=== PATIENT | male | born 1985 | race Two or more races ===

== ENCOUNTER 2024-10-08 12:08 | Emergency (ER) | payer MEDICAID, OTHER ==
[~2024-10-08] VITALS: Ht 190.5 cm; Wt 102.3 kg
[2024-10-08 14:22] LABS: Basophils # (auto) 0 10 ^3/uL (0-0.2); Basophils % (auto) 0.6 % (0.0-2.0); Eosinophils # (auto) 0 10 ^3/uL (0-0.8); Eosinophils % (auto) 0.3 % (0.0-7.0); Hematocrit 50.7 % (41.0-53.0); Lymphocytes # (auto) 2.8 10 ^3/uL (0.4-5.4); Lymphocytes % (auto) 41.2 % (10.0-50.0); Mean Corpuscular Hemoglobin 30.7 pg (28.0-32.0); Mean Corpuscular Hgb Conc. 33.5 g/dL (32.0-36.0); Mean Corpuscular Volume 91.5 fL (80.0-100.0); Monocytes # (auto) 0.4 10 ^3/uL (0-1.3); Monocytes % (auto) 5.6 % (0.0-12.0); Neutrophils # (auto) 3.6 10 ^3/uL (1.6-8.6); Neutrophils % (auto) 52.3 % (37.0-80.0); Nucleated Red Blood Cells % 0.1 %; Platelet Count (auto) 200 10^3/uL (140-450); Red Blood Cells 5.54 10^6/uL (4.5-5.90); Red Cell Distribution Width 14.4 % (11.8-14.3); White Blood Cell 6.8 10^3/uL (4.4-10.8)
--- NOTE | 2024-10-08 14:30 | ED.PDOC ---
History of Present Illness HPI Comments 38 y/o M, with a Hx of Trilogy of Fallot and LA, presents with resolved c/o shortness of breath, dizziness, generalized tremors, nausea, and vomiting, today. Patient reports unprovoked and sudden onset of symptoms, intermittently, this morning that began around 0400. He states on symptoms feeling similar to when he had a LA in June 29 2024 and, recently, moving from [facility]. He states also on having established care with his local material requirements worker and is awaiting results from a Holter monitor he had for the past 2 weeks. He reports no additional relevant or pertinent Hx, such as travel, injuries, stress, or strenuous activities. He denies having any chest pain, palpitations, lig htheadedness, fever, chills, or other associated symptoms or modifiers at this time. Chief Complaint: Dizziness Time Seen by MD: 13:45 Reviewed Notes: Nurses Notes, Medications, Allergies Allergies: Coded Allergies: NO KNOWN ALLERGIES (Unverified , 10/08/24) Information Source: Patient Mode of Arrival: Ambulatory Severity: Moderate Timing: Hours Duration: Intermittent Prehospital treatment: 12 Lead EKG, Accucheck (108), Linux Administrator, IVF (250) Past Medical History PAST MEDICAL HISTORY: LA Past Medical History (Other): Trilogy of Fallot Surgical History: Denies all surgeries Family History Family History: Unknown Social History Smoker: Non-Smoker Alcohol: Denies ETOH Use Drugs: Denies Drug Use Lives In: Home Respiratory: reports: shortness of breath Gastrointestinal: reports: nausea, vomiting Neurological: reports: dizziness, tremors All Other Systems: Reviewed and Negative (negative unless otherwise stated above or in HPI) Physical Exam General Appearance: No Apparent Distress, Normal HEENT: Normal ENT Inspection, Pharynx Normal, TMs Normal Neck: Full Range of Motion, Non-Tender, Normal, Normal Inspection Respiratory: Chest Non-Tender, Lungs Clear, No Accessory Muscle Use, No Respiratory Distress, Normal Breath Sounds Cardiovascular: No Edema, No JVD, No Murmur, No Gallop, Normal Peripheral Pulses, Regular Rate/Rhythm Breast Exam: Deferred Gastrointestinal: No Organomegaly, Non Tender, No Pulsatile Mass, Normal Bowel Sounds, Soft Genitalia: Deferred Pelvic: Deferred Rectal: Deferred Extremities: No calf tenderness, Normal capillary refill, Normal inspection, Normal range of motion, Non-tender, No pedal edema Musculoskeletal : Apperance: Normal Neurologic: Alert, mix house operator II-XII nml as Tested, No Motor Deficits, Normal Affect, Normal Mood, No Sensory Deficits Cerebellar Function: Normal Reflexes: Normal Skin: Dry, Normal Color, Warm Lymphatic: No Adenopathy Was a procedure done? Was a procedure done?: No EKG EKG : Pulse Rate (adult): 71 [place]: Normal Cardiac Rhythm: NSR Block: None Hypertrophy: None ST: Normal Differential Dx Considerations may include: LA, ACS, PE, PNA, URI, bronchitis, covid19, pleural effusions, viral syndrome X-Ray, Labs, Meds, VS Vital Signs Date Time Temp Pulse Resp B/P (MAP) Pulse Ox O2 Delivery O2 Flow Rate FiO2 10/08/24 15:18 72 18 120/65 (83) 97 10/08/24 14:30 71 10/08/24 12:59 70 19 96 Room Air 10/08/24 12:59 98.0 70 19 128/81 (97) 96 98.0 10/08/24 12:11 71 10/08/24 12:10 98.0 80 18 125/74 (91) 97 Lab Test 10/08/24 14:49 10/08/24 14:01 Range/Units Troponin I High Sensitivity 7 5 </=54 ng/L White Blood Count 6.8 4.4-10.8 10^3/uL Red Blood Count 5.54 4.5-5.90 10^6/uL Hemoglobin 17.0 13.5-17.5 g/dL Hematocrit 50.7 41.0-53.0 % Mean Corpuscular Volume 91.5 80.0-100.0 fL Mean Corpuscular Hemoglobin 30.7 28.0-32.0 pg Mean Corpuscular Hemoglobin Concent 33.5 32.0-36.0 g/dL Red Cell Distribution Width 14.4 H 11.8-14.3 % Platelet Count 200 140-450 10^3/uL Mean Platelet Volume 9.7 6.9-10.8 fL Neutrophils (%) (Auto) 52.3 37.0-80.0 % Lymphocytes (%) (Auto) 41.2 10.0-50.0 % Monocytes (%) (Auto) 5.6 0.0-12.0 % Eosinophils (%) (Auto) 0.3 0.0-7.0 % Basophils (%) (Auto) 0.6 0.0-2.0 % Neutrophils # (Auto) 3.6 1.6-8.6 10 ^3/uL Lymphocytes # (Auto) 2.8 0.4-5.4 10 ^3/uL Monocytes # (Auto) 0.4 0-1.3 10 ^3/uL Eosinophils # (Auto) 0 0-0.8 10 ^3/uL Basophils # (Auto) 0 0-0.2 10 ^3/uL Nucleated Red Blood Cells 0.1 % Prothrombin Time 11.2 9.3-11.8 sec Prothrombin Time INR 1.06 0.9-1.15 Activated Partial Thromboplast Time 28.8 24.5-34.5 SEC D-Dimer, Quantitative 0.24 0.0-0.49 mg/L FEU Sodium Level 140 136-145 mmol/L Potassium Level 4.2 3.5-5.1 mmol/L Chloride Level 104 98-107 mmol/L Carbon Dioxide Level 30 20-31 mmol/L Anion Gap 6 5-15 Blood Urea Nitrogen 10 9-23 mg/dL Creatinine 1.03 0.700-1.30 mg/dL Glomerular Filtration Rate Calc 95 >90 mL/min BUN/Creatinine Ratio 9.7 L 10.0-20.0 Serum Glucose 89 74-106 mg/dL Calcium Level 10.4 8.7-10.4 mg/dL Magnesium Level 1.9 1.6-2.6 mg/dL Total Bilirubin 1.2 H 0.2-1.0 mg/dL Aspartate Amino Transferase (AST) 18 13-40 U/L Alanine Aminotransferase (ALT) 27 7-40 U/L Alkaline Phosphatase 57 46-116 U/L B-Type Natriuretic Peptide 32.57 0-100 pg/mL Total Protein 7.2 5.7-8.2 g/dL Albumin 4.5 3.2-4.8 g/dL X-Ray, Labs, Meds, VS Comment This 38-year-old male with a past medical history significant for tetralogy of Fallot presents to emergency room concern of his heart. Early today, he had acute onset of shortness of breath and chest discomfort that resolved after several minutes. He has been asymptomatic for several hours at the time of interview. He has no other complaints such as fever, chills, sweats, nausea or vomiting. His physical exam was benign. Labs were benign including negative troponin x2. He had a heart score of 2. As such, the patient was discharged ho ms. He was as follows PCP and material requirements worker. She will return to the ER for new/worse/worsening symptoms. Time of 1ST Reevaluation: 14:15 Reevaluation 1ST: Unchanged Time of 2ND Reevaluation: 16:06 Reevaluation 2ND: Unchanged Patient Education/Counseling: Diagnosis, Treatment Family Education/Counseling: No Family Present Departure 1 Departure Time of Disposition: 16:03 Impression: Primary Impression: Chest pain Additional Impression: Shortness of breath Disposition: 01 HOME / SELF CARE / HOMELESS Condition: Good Discharged With: Self Critical Care Note Critical Care Time?: No Stability Stability form required: No Heart Score Heart Score: Heart Score Response (Comments) Value History Moderate Suspicious 1 EKG Normal 0 Age <45 0 Risk Factors 1 or 2 risk factors 1 Troponin Normal limit 0 Total 2 I personally scribed for MARCELLO TOTH MD ([email or web address]) on 10/08/24 at 14:30. Electronically submitted by Darrin Orr ([email or web address]). MARCELLO TOTH MD Oct 08, 2024 14:30
[2024-10-08 14:38] LABS: INR 1.06 (0.9-1.15); Partial Thromboplastin Time 28.8 SEC (24.5-34.5); Prothrombin Time 11.2 sec (9.3-11.8)
[2024-10-08 14:41] LABS: Alanine Aminotransferase 27 U/L (7-40); Albumin 4.5 g/dL (3.2-4.8); Alkaline Phosphatase 57 U/L (46-116); Anion Gap 6 (5-15); Aspartate Aminotransferase 18 U/L (13-40); BUN/Creatinine Ratio 9.7 (10.0-20.0); Bilirubin, Total 1.2 mg/dL (0.2-1.0); Blood Urea Nitrogen 10 mg/dL (9-23); Calcium 10.4 mg/dL (8.7-10.4); Carbon Dioxide 30 mmol/L (20-31); Chloride 104 mmol/L (98-107); Glucose 89 mg/dL (74-106); Magnesium 1.9 mg/dL (1.6-2.6); Potassium 4.2 mmol/L (3.5-5.1); Sodium 140 mmol/L (136-145); Total Protein 7.2 g/dL (5.7-8.2)
--- NOTE | 2024-10-08 14:42 | DVH ---
XY CHEST PORTABLE, HISTORY: chest pain COMPARISON: None None TECHNICAL DATA: 1 view of the chest was obtained. FINDINGS: Lines and tubes: None Cardiomediastinal silhouette: normal Pulmonary vasculature: normal Lung expansion: normal Lung airspace: normal Lung interstitium: normal Pleura: normal Pneumothorax: no Bones: Unremarkable Other: no IMPRESSION: No acute intrathoracic abnormality.
[2024-10-08 16:06] LABS: Urine Bacteria None Seen /hpf (None Seen)
[2024-10-08 16:16] LABS: Urine Blood Negative /uL (Negative); Urine Clarity Clear (Clear); Urine Color Yellow (Yellow); Urine Protein, UAD Negative (Negative); Urine Specific Gravity 1.022 (1.001-1.035); Urine Squamous Epithelial Cell None Seen /hpf (<5); Urine Urobilinogen 4 mg/dL (Negative); Urine WBC <1 /hpf (0 - 3); Urine pH 6.5 (5.0-9.0)
[2024-10-08 16:37] VITALS: BP 122/75; PULSE 72; RESP 16; TEMP 97.5; O2SAT 99
--- NOTE | 2024-10-10 11:14 | ECG ---
[facility] Test Date: 2024-10-08 Test Time: 12:11:14 Pat Name: MASSIEL HOWELL Department: er Room: Gender: M Accounting Administrative Assistant: mikie : [id number] Requested By: MARCELLO TOTH Order Number: [id number] Reading MD: Ian Hidalgo Measurements Intervals [place] Rate: 71 P: 4 VA: 221 QRS: 94 QRSD: 157 T: 79 QT: 428 QTc: 466 Interpretive Statements Sinus rhythm Prolonged VA interval Right bundle branch block Electronically Signed On 10-10-2024 13:06:20 PST by Ian Hidalgo Please click the below link to view image of tracing.
== END 2024-10-08 16:39 | disposition home or self-care (01) ==
LOC: EDBD 12:08 → ER 12:15
DX: R07.9 Chest pain, unspecified (principal); R06.02 Shortness of breath; R42 Dizziness and giddiness; I25.2 Old myocardial infarction; Z79.899 Other long term (current) drug therapy
CPT/HCPCS: 36415; 71045; 80053; 81001; 83735; 83880; 84484; 85025; 85379; 85610; 85730; 93005